=== PATIENT | male | born 1970 | race Two or more races ===

== ENCOUNTER 2022-05-27 14:11 | Emergency (ER) | payer OTHER ==
[~2022-05-27] VITALS: Ht 170.2 cm; Wt 84.4 kg
[2022-05-27] MEDS ORDERED: PRED20TA PO (15:00)
[2022-05-27] MEDS ORDERED: VALA100026 PO (15:00)
[2022-05-27] MEDS ORDERED: POLY15DR31 LEFTEYE (15:02)
--- NOTE | 2022-05-27 15:35 | NUR ---
Patient discharged to home in stable condition. Written and verbal after care instructions given. Patient verbalizes understanding of instruction.
--- NOTE | 2022-05-27 15:35 | NUR ---
L EYE PROTECTION PROVIDED.
[2022-05-27 15:37] VITALS: BP 130/82
== END 2022-05-27 16:11 | disposition home or self-care (01) ==
LOC: ER 15:55
DX: G51.0 Bell's palsy (principal)